=== PATIENT | male | born 1945 | race African-American/Black ===

== ENCOUNTER 2021-08-28 18:35 | Emergency (ER) | payer OTHER, MEDICAID ==
[~2021-08-28] VITALS: Ht 180.3 cm; Wt 101.0 kg
[2021-08-28 19:21] LABS: BASOPHILS % 1.6 % (0.0-2.0); EOSINOPHILS % 5.2 % (0.0-5.0); HEMATOCRIT. 26.9 % (42.0-52.0); HEMOGLOBIN. 8.9 g/dL (14.0-18.0); LYMPHOCYTES % 23.6 % (20.0-50.0); MEAN CORPUSCULAR HEMOGLOBIN 29.2 pg (28.0-32.0); MEAN CORPUSCULAR VOLUME 87.9 fL (80.0-94.0); MEAN PLATELET VOLUME 8.2 fl (7.4-10.4); MONOCYTES % 13.8 % (2.0-8.0); NEUTROPHILS % 55.8 % (40.0-76.0); PLATELET 356 x1000/uL (130-400); RED BLOOD CELL COUNT 3.06 mill/uL (4.7-6.1); RED CELL DISTRIBUTION WIDTH 16.5 % (11.6-14.6)
[2021-08-28 19:28] LABS: CHLORIDE 107 mEq/L (98-107)
[2021-08-28] MEDS ORDERED: FUROSEMIDE 40MG/4ML VIAL IVP ONE (21:30)
[2021-08-29 01:15] VITALS: BP 150/89
== END 2021-08-29 01:32 | disposition short-term general hospital (02) ==
LOC: ER 18:35
DX: I11.0 Hypertensive heart disease with heart failure (principal); I50.9 Heart failure, unspecified; R06.89 Other abnormalities of breathing; R60.0 Localized edema; I69.351 Hemiplegia and hemiparesis following cerebral infarction affecting right dominant side; F12.10 Cannabis abuse, uncomplicated; Z20.822 Contact with and (suspected) exposure to COVID-19
CPT/HCPCS: 36415; 71045; 80053; 83880; 84484; 85025; 87426; 93005; 96374; 99285; J1940